=== PATIENT | male | born 2000 | race Two or more races ===

== ENCOUNTER 2024-07-12 11:59 | Inpatient (IN) | payer OTHER ==
[~2024-07-12] VITALS: Ht 182.9 cm; Wt 81.6 kg
[2024-07-12] MEDS ORDERED: ACETAMINOPHEN 325 MG TABLET PO ONE ×2 (12:30→12:31)
[2024-07-12] MEDS ORDERED: 0.9 % SODIUM CHLORIDE 1,000 ML IV ONE (12:30)
[2024-07-12 13:50] LABS: HEMOGLOBIN 15.1 g/dL (13-16.00); MEAN CELL VOLUME 83.8 fL (80.0-100.00); MEAN CORPUSCULAR HEMOGLOBIN 29.3 pg (27.00-32.0); RED BLOOD COUNT 5.13 M/uL (4.00-6.00); RED CELL DISTRIBUTION WIDTH 12.4 % (11.5-14.5)
[2024-07-12 13:51] LABS: PLATELET COUNT 48 K/uL (150-450)
[2024-07-12 14:04] LABS: INR 1.12; PARTIAL THROMBOPLASTIN TIME 37.3 SECONDS (22.0-34.0); PROTHROMBIN TIME 12.1 SECONDS (9.0-11.5)
[2024-07-12 14:20] LABS: URINE APPEARANCE Clear; URINE BILIRRUBIN Negative (NEGATIVE); URINE BLOOD Negative; URINE COLOR Dark Yellow; URINE GLUCOSE Negative (NEGATIVE); URINE KETONE 15 (NEGATIVE); URINE LEUKOCYTE Negative; URINE NITRATE Negative
[2024-07-12 14:23] LABS: URINE BACTERIA 12.2 uL (0.0-1933); URINE EPITHELIAL CELLS 13.1 uL (0.0-38.8); URINE RBC 12.9 uL (0.0-20.8); URINE WBC 12.8 uL (0.0-23.2)
[2024-07-12 14:33] LABS: POTASSIUM 4.13 mEq/L (3.5-5.1)
[2024-07-12 14:33] LABS: URINE PROTEIN 300 (NEGATIVE)
[2024-07-12 14:35] LABS: ALBUMIN 3.6 gm/dL (3.4-5.0); BILIRUBIN TOTAL 0.44 mg/dL (0.3-1.2); CREATININE SERUM 0.99 mg/dL (0.70-1.30); GFR 92.87; GLOBULINA 2.9 G/DL (2.4-3.5); TOTAL PROTEIN 6.5 gm/dL (6.4-8.2)
[2024-07-12] MEDS ORDERED: RINGERS SOLUTION,LACTATED 1,000 ML IV SCH (16:15)
[2024-07-12] MEDS ORDERED: ACETAMINOPHEN 500 MG GEL..CAP PO PRN (16:15)
[2024-07-12 18:00] VITALS: BP 144/59; O2SAT 99
[2024-07-13 02:35] VITALS: BP 109/63; O2SAT 97
[2024-07-13 08:29] LABS: ALBUMIN 3.2 gm/dL (3.4-5.0); BILIRUBIN TOTAL 0.48 mg/dL (0.3-1.2); CALCIUM 8.1 mg/dL (8.5-10.1); CREATININE SERUM 0.78 mg/dL (0.70-1.30); GFR 122.28; GLOBULINA 2.5 G/DL (2.4-3.5); MAGNESIUM 1.8 mg/dL (1.8-2.4); PHOSPHOROUS 2.5 mg/dL (2.5-4.9); POTASSIUM 4.36 mEq/L (3.5-5.1); TOTAL PROTEIN 5.7 gm/dL (6.4-8.2)
[2024-07-13 08:36] LABS: C-REACTIVE PROTEIN 0.65 MG/DL (0.00-0.29)
[2024-07-13 08:47] VITALS: BP 114/60; O2SAT 98
[2024-07-13 08:54] LABS: HEMOGLOBIN 14.9 g/dL (13-16.00); MEAN CELL VOLUME 84.8 fL (80.0-100.00); MEAN CORPUSCULAR HEMOGLOBIN 28.8 pg (27.00-32.0); RED BLOOD COUNT 5.19 M/uL (4.00-6.00); RED CELL DISTRIBUTION WIDTH 12.6 % (11.5-14.5)
[2024-07-13] MEDS ORDERED: PANTOPRAZOLE SODIUM 40 MG TABLET.DR PO SCH (09:00)
[2024-07-13 09:02] LABS: PLATELET COUNT 44 K/uL (150-450)
[2024-07-13 09:50] LABS: ERYTHROCYTE SEDIMENTATION RATE 2 mm/hr
[2024-07-13 10:42] LABS: MANUAL PLATELET COUNT 100
[2024-07-13 11:05] LABS: PLT IN CITRATE 11 K/uL (150-450)
[2024-07-13 16:00] VITALS: BP 168/75; O2SAT 96
[2024-07-13] MEDS ORDERED: ONDANSETRON HCL 4 MG in 0.9 % SODIUM CHLORIDE 50 ML IV PRN (17:00)
[2024-07-14 02:29] VITALS: BP 115/45
[2024-07-14 06:31] LABS: HEMATOCRIT 43.6 % (39.0-48.0); HEMOGLOBIN 15.4 g/dL (13-16.00); MEAN CELL VOLUME 83.3 fL (80.0-100.00); MEAN CORPUSCULAR HEMOGLOBIN 29.5 pg (27.00-32.0); MEAN CORPUSCULAR HGB CONC 35.4 g/dl (32.0-36.0); RED BLOOD COUNT 5.24 M/uL (4.00-6.00); RED CELL DISTRIBUTION WIDTH 12.3 % (11.5-14.5)
[2024-07-14 07:19] LABS: ALBUMIN 3.1 gm/dL (3.4-5.0); BILIRUBIN TOTAL 0.57 mg/dL (0.3-1.2); CALCIUM 8.5 mg/dL (8.5-10.1); CREATININE SERUM 0.9 mg/dL (0.70-1.30); GFR 103.67; GLOBULINA 2.6 G/DL (2.4-3.5); POTASSIUM 4.04 mEq/L (3.5-5.1); TOTAL PROTEIN 5.7 gm/dL (6.4-8.2)
[2024-07-14 07:44] LABS: PLATELET COUNT 52 K/uL (150-450)
[2024-07-14 09:44] VITALS: BP 119/63; O2SAT 98
== END 2024-07-14 14:37 | disposition home or self-care (01) | DRG 866 ==
LOC: ER 12:02 → MEDI 16:36
PROVIDERS: General Practice; ADMIT Internal Medicine; ATTEND Internal Medicine
DX: A90 Dengue fever [classical dengue] (principal); D69.6 Thrombocytopenia, unspecified; K06.8 Other specified disorders of gingiva and edentulous alveolar ridge